=== PATIENT | female | born 1985 | race Caucasian/White ===

== ENCOUNTER 2017-01-24 11:33 | Day surgery (SDC) | payer OTHER ==
[2017-01-24 12:19] VITALS: RESP 18
[2017-01-24] MEDS ORDERED: Bupivacaine/Epi 0.25%-1:200,000 10 ml PF inj IJ ONE (15:51)
[2017-01-24] MEDS ORDERED: Lidocaine 1% Inj (20ml) ONE (15:52)
[2017-01-24 17:02] VITALS: BP 109/65; PULSE 63; TEMP 97.8; O2SAT 100
--- NOTE | 2017-01-24 19:24 | PCM.SURG1 ---
Surgeon's Initial Post Op Note - Surgeon's Notes Surgeon: Dr. Brown Dryer Feeder: Dr. De Paz PGY2 Type of Anesthesia: Local Pre-Operative Diagnosis: sebaceous cyst Operative Findings: see dictation Post-Operative Diagnosis: same Operation Performed: excision of back sebaceous cyst Specimen/Specimens Removed: sebaceous cyst Estimated Blood Loss: EBL {In ML}: 5 Drains Used: No Drains Post-Op Condition: Good Date of Surgery/Procedure: 01/24/17 Time of Surgery/Procedure: 14:50
--- NOTE | 2017-01-24 22:13 | OP ---
PROCEDURE DATE: 01/24/2017 PREOPERATIVE DIAGNOSIS: Sebaceous cyst of the mid back, 2 x 2 cm size. POSTOPERATIVE DIAGNOSIS: Sebaceous cyst of the mid back, 3 x 3 cm size. PROCEDURES DONE: 1. Excision of sebaceous cyst of the mid back, 3 x 3 cm size. 2. Layered closure of the wound, 3 x 2 cm size. SURGEON: Shukri Brown MD COMMERCIAL ARTIST: Alfreda De Paz, PGY-2 resident. TYPE OF ANESTHESIA: Local anesthesia. ESTIMATED BLOOD LOSS: Around 10 mL DRAINS: None. PATHOLOGY: Sebaceous cyst was sent to the pathology. COMPLICATIONS: None. INTRAOPERATIVE FINDINGS: The patient had approximately 3 x 3 cm large sebaceous cyst of the mid bank and on intraoperative steps, this is a 31-year-old female who was diagnosed with sebaceous cyst of the mid back and the patient was consented for excision of the sebaceous cyst, brought to the OR, placed supine on the operating table. After induction of the anesthesia, the back was prepped and draped in the usual sterile fashion. The local anesthesia was injected and elliptical incision was made after incising the skin and subcutaneous tissue, upper and lower flaps were created. The dissection was carried all the way down up to the markers and the fascia and the sebaceous cyst was completely excised and it was sent to the table for the pathology. The wound was irrigated, hemostasis was achieved. The wound was closed in multiple layers, upper and lower flaps were sutured to the underlying fascia and another layer of the subcu was sutured to the underlying fascia. Another simple layer of the subcu with 3-0 Vicryl, skin with a 4-0 Monocryl, and another layer of the skin with 5-0 nylon, interrupted suture and dry sterile dressing was applied. The patient tolerated the procedure well. Count of the instruments and gauze was correct. There was no apparent complication. The patient was sent to the postanesthesia care unit in stable condition. Shukri Brown MD
== END 2017-01-24 17:12 | disposition home or self-care (01) ==
LOC: C.SDS 11:33
PROVIDERS: ATTEND Surgery Surgical Critical Care
DX: L72.3 Sebaceous cyst (principal)